=== PATIENT | male | born 1965 | race Caucasian/White ===

== ENCOUNTER → 2024-05-14 11:26 | Outpatient (REF) | payer OTHER, SELFPAY | LOC: RAD 11:26 | PROVIDERS: ATTENDING PHYSICIAN Physician Assistant | DX: R05.1 Acute cough (principal) | CPT/HCPCS: 71046 ==

== ENCOUNTER → 2024-11-18 12:12 | Outpatient (REF) | payer OTHER, SELFPAY | LOC: RAD 12:12 | PROVIDERS: ATTENDING PHYSICIAN Nurse Practitioner Family | DX: M25.511 Pain in right shoulder (principal) | CPT/HCPCS: 73030 ==

== ENCOUNTER → 2025-04-13 14:22 | Outpatient (REF) | payer OTHER, SELFPAY | LOC: EMG 14:22 | PROVIDERS: ATTENDING PHYSICIAN Nurse Practitioner Family | DX: M25.50 Pain in unspecified joint (principal); R20.0 Anesthesia of skin | CPT/HCPCS: 95886; 95911 ==

== ENCOUNTER → 2025-04-23 17:36 | Outpatient (REF) | payer OTHER, SELFPAY | LOC: RAD 17:36 | PROVIDERS: ATTENDING PHYSICIAN Nurse Practitioner Family | DX: Z85.850 Personal history of malignant neoplasm of thyroid (principal) | CPT/HCPCS: 76536 ==